=== PATIENT | male | born 1990 | race African-American/Black ===

== ENCOUNTER 2018-03-08 11:19 | Emergency (ER) | payer OTHER ==
[~2018-03-08] VITALS: Ht 172.7 cm; Wt 83.3 kg
[~2018-03-08 11:19] MED LIST: ATENOLOL25 MG PO; INDERAL10 MG PO; METHIMAZOLE5 MG PO
[2018-03-08 11:47] LABS: HEMATOCRIT 43.4 % (38.0-50.0); HEMOGLOBIN 14.7 G/DL (12.5-16.6); MCH 29.6 PG (29.0-34.0); MCHC 33.9 G/DL (30.0-36.0); MCV 87.5 FL (86-99); PLATELET COUNT 296 K/uL (156-360); RBC DIS.WIDTH-CV 12.4 % (11.8-14.6); RBC DIS.WIDTH-SD 39.7 % (39-53); RED BLOOD COUNT 4.96 M/uL (4.00-5.50); WHITE BLOOD COUNT 17.2 K/uL (4.1-10.2)
[2018-03-08 11:55] LABS: ALBUMIN 4.1 g/dL (3.2-4.8); CHLORIDE 100 mEq/L (99-109); SODIUM 136 mEq/L (136-147)
[2018-03-08 11:57] LABS: GLUCOSE 124 mg/dL (70-99); TOTAL PROTEIN 7.7 g/dL (6.4-8.3)
[2018-03-08 11:59] LABS: TOTAL BILIRUBIN 1.8 mg/dL (0.0-1.0)
[2018-03-08 12:01] LABS: ALKALINE PHOSPHATASE 75 IU/L (3-129); GFR ESTIMATE (CALCULATED) > 59 mL/min/ (58.99-99999)
[2018-03-08 12:02] LABS: UREA NITROGEN (BUN) 10 mg/dL (9-23)
[2018-03-08 12:03] LABS: AST (GOT) 12 IU/L (2-34)
[2018-03-08 12:04] LABS: ALT (GPT) 21 IU/L (3-49)
[2018-03-08 12:54] LABS: LIPASE 6 U/L (1.0-51.0)
[2018-03-08 13:54] LABS: DIRECT BILIRUBIN 0.8 mg/dL (0.0-0.3)
[2018-03-08 14:32] LABS: APPEARANCE CLEAR ((CLEAR)); BILIRUBIN NEGATIVE; BLOOD NEGATIVE; COLOR YELLOW ((YELLOW)); GLUCOSE (STRIP) NEGATIVE; KETONES NEGATIVE; LEUKOCYTES MODERATE; NITRITE POSITIVE; PROTEIN (STRIP) NEGATIVE; SPECIFIC GRAVITY 1.025 (1.000-1.030)
[2018-03-08 15:07] LABS: EPITHELIAL CELLS NONE SEEN /HPF; RED BLOOD CELLS RARE /HPF (0-5)
[2018-03-08 15:08] LABS: BACTERIA 1+ /HPF; MUCUS RARE /LPF; UCUL ADDED? YES
[2018-03-08 15:33] LABS: SOURCE URINE
[2018-03-08] MEDS ORDERED: BACTRIM,SEPT1 TABLET PO (15:38)
[2018-03-08] MEDS ORDERED: NAPROSYN500 MG PO (15:38)
[2018-03-08] MEDS ORDERED: ZOFRAN ODT4 MG PO (15:38)
[2018-03-08] MEDS ORDERED: TAPAZOLE10 MG PO (15:41)
[2018-03-08 16:01] VITALS: BP 123/81
[2018-03-13 13:33] LABS: CHLAMYDIA TRACHOMATIS NEGATIVE; NEISSERIA GONORRHOEAE NEGATIVE
== END 2018-03-08 16:04 | disposition home or self-care (01) ==
LOC: EME 11:19
PROVIDERS: Nurse Practitioner Family
DX: N39.0 Urinary tract infection, site not specified (principal); K80.20 Calculus of gallbladder without cholecystitis without obstruction; E05.90 Thyrotoxicosis, unspecified without thyrotoxic crisis or storm; R50.9 Fever, unspecified
CPT/HCPCS: 74177; 80053; 81003; 82248; 83690; 85027; 87077; 87086; 87186; 87491; 87591; 99281; 99285; J1885; J2405; J7030

== ENCOUNTER 2018-03-27 15:03 | Emergency (ER) | payer OTHER ==
[~2018-03-27] VITALS: Ht 172.7 cm; Wt 77.5 kg
[~2018-03-27 15:03] MED LIST changes: +BACTRIM,SEPT1 TABLET PO; +NAPROSYN500 MG PO; +TAPAZOLE10 MG PO; +ZOFRAN ODT4 MG PO
[2018-03-27 15:22] LABS: HEMATOCRIT 43.4 % (38.0-50.0); HEMOGLOBIN 14.7 G/DL (12.5-16.6); MCHC 33.9 G/DL (30.0-36.0); MCV 85.6 FL (86-99); RBC DIS.WIDTH-CV 11.9 % (11.8-14.6); RBC DIS.WIDTH-SD 36.9 % (39-53); RED BLOOD COUNT 5.07 M/uL (4.00-5.50)
[2018-03-27 15:23] LABS: PLATELET COUNT 407 K/uL (156-360)
[2018-03-27 15:30] LABS: ALBUMIN 4.2 g/dL (3.2-4.8); CHLORIDE 103 mEq/L (99-109); POTASSIUM 4.2 mEq/L (3.7-5.4); SODIUM 139 mEq/L (136-147)
[2018-03-27 15:32] LABS: GLUCOSE 116 mg/dL (70-99); TOTAL PROTEIN 8.8 g/dL (6.4-8.3)
[2018-03-27 15:34] LABS: TOTAL BILIRUBIN 1.2 mg/dL (0.0-1.0)
[2018-03-27 15:36] LABS: ALKALINE PHOSPHATASE 105 IU/L (3-129); GFR ESTIMATE (CALCULATED) > 59 mL/min/ (58.99-99999)
[2018-03-27 15:37] LABS: UREA NITROGEN (BUN) 15 mg/dL (9-23)
[2018-03-27 15:38] LABS: AST (GOT) 21 IU/L (2-34)
[2018-03-27 15:39] LABS: ALT (GPT) 28 IU/L (3-49)
[2018-03-27 17:46] LABS: APPEARANCE SL.HAZY ((CLEAR)); BILIRUBIN NEGATIVE; BLOOD NEGATIVE; COLOR YELLOW ((YELLOW)); GLUCOSE (STRIP) NEGATIVE; KETONES NEGATIVE; LEUKOCYTES MODERATE; NITRITE NEGATIVE; PROTEIN (STRIP) NEGATIVE; SPECIFIC GRAVITY 1.021 (1.000-1.030); UROBILINOGEN 0.2 MG/DL (0.2-1.0)
[2018-03-27 18:06] LABS: LIPASE 16 U/L (1.0-51.0)
[2018-03-27 18:26] LABS: EPITHELIAL CELLS NONE SEEN /HPF; RED BLOOD CELLS NONE SEEN /HPF (0-5); WHITE BLOOD CELLS 15-20 /HPF (0-5)
[2018-03-27 18:27] LABS: BACTERIA 1+ /HPF; MUCUS RARE /LPF; UCUL ADDED? YES
[2018-03-27] MEDS ORDERED: CARAFATE1 GM PO (20:15)
[2018-03-27] MEDS ORDERED: ZOFRAN ODT8 MG PO (20:15)
[2018-03-27] MEDS ORDERED: PEPCID20 MG PO (20:15)
[2018-03-27] MEDS ORDERED: TESSALON PERLE100 MG PO (20:20)
[2018-03-27] MEDS ORDERED: VENTOLIN HFA18 GM IH (20:20)
[2018-03-27 20:30] VITALS: BP 119/71
== END 2018-03-27 20:32 | disposition home or self-care (01) ==
LOC: EME 15:03
DX: R10.13 Epigastric pain (principal); R11.10 Vomiting, unspecified; R05 Cough
CPT/HCPCS: 71046; 80053; 81003; 83690; 85027; 87077; 87086; 87186; 94640; 99281; 99284